=== PATIENT | female | born 1995 | race Caucasian/White ===

== ENCOUNTER 2017-06-27 21:54 | Emergency (ER) | payer BC ==
[~2017-06-27] VITALS: Ht 154.9 cm; Wt 66.2 kg
[~2017-06-27 21:54] MED LIST: ADDERALL 30 MG30 MG PO; BIRTH CONTROL; COMPAZINE10 MG PO; CYCLOBENZAPRINE5 MG PO; IBUPROFEN 800800 MG PO; LIORESAL 10 MG10 MG PO; TRAMADOL 50 MG50 MG PO; ZOFRAN4 MG PO
[2017-06-27 22:23] LABS: URINE BILIRUBIN NEGATIVE (Negative); URINE BLOOD NEGATIVE (Negative); URINE CLARITY CLEAR; URINE COLOR YELLOW; URINE GLUCOSE-RANDOM NEGATIVE (Negative); URINE KETONES NEGATIVE (Negative); URINE LEUKOCYTES-REFLEX NEGATIVE (Negative); URINE NITRITE-REFLEX NEGATIVE (Negative); URINE PROTEIN NEGATIVE (Negative); URINE SPECIFIC GRAVITY >= 1.030 (1.005-1.030); URINE UROBILINOGEN 0.2 E.U./dl (0.2-1.0)
[2017-06-27 22:29] LABS: ABSOLUTE BASOPHILS 0.1 thou/uL (0.0-0.2); ABSOLUTE EOSINOPHILS 0.1 thou/uL (0.0-0.7); ABSOLUTE LYMPHOCYTES 3.6 thou/uL (0.8-5.3); ABSOLUTE MONOCYTES 0.6 thou/uL (0.0-1.2); ABSOLUTE NEUTROPHILS 4.3 thou/uL (1.6-8.1); BASOPHILS 0.7 %; EOSINOPHILS 1.2 %; HEMATOCRIT 40.1 % (37.0-47.0); HEMOGLOBIN 13.2 gm/dL (12.0-15.0); LYMPHOCYTES 41.6 %; MCH 27.2 pg (26.0-34.0); MCHC 32.9 g/dL (28.0-37.0); MCV 82.6 fL (80.0-100.0); MONOCYTES 7.1 %; MPV 9.5 fl. (7.2-11.1); NUCLEATED RBCS 0 /100WBC; PLATELET COUNT* 182 thou/uL (150-400); POLYS 49.4 %; RBC 4.85 mil/uL (4.20-5.00); RDW-CV 13.9 % (10.5-14.5); WBC 8.6 thou/uL (4.0-11.0)
[2017-06-27 22:36] LABS: CALCIUM 8.9 mg/dL (8.5-10.1); CREATININE 0.8 mg/dL (0.6-1.3); POTASSIUM 3.5 mmol/L (3.5-5.1)
[2017-06-27 22:41] LABS: ALBUMIN 3.8 g/dL (3.4-5.0); TOTAL BILIRUBIN 0.2 mg/dL (<0.1-1.0); TOTAL PROTEIN 6.7 g/dL (6.4-8.2)
[2017-06-27] MEDS ORDERED: PROTONIX40 M2 PO (23:12)
[2017-06-27] MEDS ORDERED: BENTYL 20 MG TA20 M1 PO (23:13)
[2017-06-27 23:34] VITALS: BP 108/68
== END 2017-06-27 23:36 | disposition home or self-care (01) ==
LOC: M.ERS 21:54
PROVIDERS: Nurse Practitioner
DX: R10.84 Generalized abdominal pain (principal); R19.5 Other fecal abnormalities